=== PATIENT | female | born 1960 | race Two or more races ===

== ENCOUNTER 2023-10-13 04:09 | Emergency (ER) | payer OTHER ==
[~2023-10-13] VITALS: Ht 167.6 cm; Wt 59.0 kg
[2023-10-13 04:44] VITALS: PULSE 98; RESP 8; O2SAT 96
[2023-10-13 06:53] VITALS: BP 96/63; PULSE 83; RESP 11; TEMP 98.2; O2SAT 98
== END 2023-10-13 07:17 | disposition home or self-care (01) ==
LOC: ER 04:09 → EDBD 04:22 → ER 07:16
DX: I47.10 Supraventricular tachycardia, unspecified (principal); R00.2 Palpitations; Z90.49 Acquired absence of other specified parts of digestive tract
CPT/HCPCS: 93005; 99291